=== PATIENT | female | born 1945 | race Caucasian/White ===

== ENCOUNTER 2017-11-20 10:39 | Emergency (ER) | payer MEDICARE, BC ==
[~2017-11-20] VITALS: Ht 160 cm; Wt 78.5 kg
[2017-11-20] MEDS ORDERED: ATENOLOL100 MG PO (10:52)
[2017-11-20] MEDS ORDERED: HYDROCHLOROTHIA25 MG PO (10:52)
[2017-11-20] MEDS ORDERED: NORCO 5-325 TA1 EACH PO (11:49)
== END 2017-11-20 12:06 | disposition home or self-care (01) ==
LOC: ED 10:39
DX: S42.201A Unspecified fracture of upper end of right humerus, initial encounter for closed fracture (principal); W01.198A Fall on same level from slipping, tripping and stumbling with subsequent striking against other object, initial encounter
CPT/HCPCS: 73060; 99283